=== PATIENT | female | born 1980 | race Caucasian/White ===

== ENCOUNTER 2020-04-22 12:30 | Emergency (ER) | payer MEDICAID ==
[~2020-04-22] VITALS: Ht 170.2 cm; Wt 79.5 kg
[2020-04-22 12:35] VITALS: BP 128/88
[2020-04-22] MEDS ORDERED: HYDROcodone/APAP 5/325 TABLET ONE (12:57)
[2020-04-22] MEDS ORDERED: HYDROcodone/APAP 5/325 TABLET PO ONE (13:00)
== END 2020-04-22 14:02 | disposition home or self-care (01) ==
LOC: ED 13:53
DX: S90.31XA Contusion of right foot, initial encounter (principal); R00.0 Tachycardia, unspecified; M79.7 Fibromyalgia; W16.522A Jumping or diving into swimming pool striking bottom causing other injury, initial encounter; Y93.89 Activity, other specified; Y92.34 Swimming pool (public) as the place of occurrence of the external cause; Y99.8 Other external cause status
CPT/HCPCS: 99284

== ENCOUNTER 2020-04-29 14:03 | Emergency (ER) | payer MEDICAID ==
[~2020-04-29] VITALS: Ht 162.6 cm; Wt 80.0 kg
--- NOTE | 2020-04-29 14:57 | NUR ---
TASK RN: PT TO CT VIA AUNG
--- NOTE | 2020-04-29 15:05 | NUR ---
PT RETURN TO ROOM. PT WAS UNABLE TO SIT STILL FOR SCANS, BROUGHT BACK TO ROOM. PT ASKING FOR PAIN MEDS. DISCUSSED WITH DR CONNOLLY.
[2020-04-29] MEDS ORDERED: OXYcodone/APAP 5/325MG TABLET ONE (15:14)
--- NOTE | 2020-04-29 15:15 | NUR ---
REPORT TO DANA Childers RN. PT TO BE MEDICATED ORDERED. PT REPORTS "MY DROPPED ME OFF"
[2020-04-29 15:21] VITALS: BP 135/88
[2020-04-29] MEDS ORDERED: OXYcodone/APAP 5/325MG TABLET PO ONE (15:30)
== END 2020-04-29 16:10 | disposition home or self-care (01) ==
LOC: ED 14:19
DX: S90.01XA Contusion of right ankle, initial encounter (principal); S90.31XA Contusion of right foot, initial encounter; F17.200 Nicotine dependence, unspecified, uncomplicated; X58.XXXA Exposure to other specified factors, initial encounter; Y93.89 Activity, other specified; Y92.89 Other specified places as the place of occurrence of the external cause; Y99.8 Other external cause status
CPT/HCPCS: 99284